=== PATIENT | male | born 1995 | race Two or more races ===

== ENCOUNTER 2020-02-21 18:37 | Emergency (ER) | payer SELFPAY ==
[~2020-02-21] VITALS: Ht 182.9 cm; Wt 81.8 kg
[2020-02-21 20:07] VITALS: BP 131/95
== END 2020-02-21 21:05 | disposition home or self-care (01) ==
LOC: EMS 18:40
DX: T40.1X1A Poisoning by heroin, accidental (unintentional), initial encounter (principal); Z02.89 Encounter for other administrative examinations; Y92.89 Other specified places as the place of occurrence of the external cause
CPT/HCPCS: 99283; Z7502